=== PATIENT | male | born 1965 | race Caucasian/White ===

== ENCOUNTER 2020-01-25 08:34 | Emergency (ER) | payer OTHER, BC, SELFPAY ==
[2020-01-25 08:46] VITALS: BP 139/82; PULSE 81; RESP 18; TEMP 36.6; O2SAT 98; BMI 30.7
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
== END 2020-01-25 10:45 | disposition home or self-care (01) ==
PROVIDERS: Emergency Provider Internal Medicine; PCP Internal Medicine
DX: S13.4XXA Sprain of ligaments of cervical spine, initial encounter (principal); S83.92XA Sprain of unspecified site of left knee, initial encounter; M54.2 Cervicalgia; V43.52XA Car driver injured in collision with other type car in traffic accident, initial encounter; Y93.9 Activity, unspecified; Y92.410 Unspecified street and highway as the place of occurrence of the external cause; Y99.9 Unspecified external cause status; Z79.899 Other long term (current) drug therapy
CPT/HCPCS: 70450; 72125; 73564; 99283; 99284

== ENCOUNTER 2020-04-23 15:00 | Outpatient (RCR) | payer OTHER, SELFPAY ==
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
--- NOTE | 2020-04-26 15:56 | MHC.PT.DC ---
[facility] [place] Office [place] Office [place] Office [address] Meghann Santos [address] [phone] F: [phone] F: [phone] F: [phone] F: [phone] Physical Therapy Discharge Report Diagnosis: pain in left knee and cervicalgia Date of Surgery: N/A Date of Evaluation: 02/24/20 Date of Discharge: 04/26/20 Treatments to Date: 9 Cancellations to Date: 7 No Shows to Date: 0 Discharge Status: Achieved Goals Improved Function Independent with HEP Discharge Summary: The patient reported he has been having little to no neck or knee pain for several weeks. He is independent with his home exercise program. He was instructed regarding a safe return to gym program. The patient is discharged from this physical therapy plan of care. Electronically signed by: Marbella Ruiz PT, DPT Please sign and return to therapist. Thank you for your referral.
== END 2020-04-26 15:57 | disposition other institution (70) ==
LOC: HO.PT 15:00
PROVIDERS: PCP Internal Medicine; Visit Provider Internal Medicine
DX: M25.562 Pain in left knee (principal)
CPT/HCPCS: 97110; 97140; 97161; 97164; 97530

== ENCOUNTER 2024-02-05 09:20 | Outpatient (AMB) | payer OTHER, SELFPAY ==
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
[2024-02-05 10:18] VITALS: BP 130/90; PULSE 68; O2SAT 95; BMI 32.6
== END 2024-02-05 10:51 | disposition home or self-care (01) ==
PROVIDERS: PCP Internal Medicine; Visit Provider Physician Assistant
DX: R20.2 Paresthesia of skin (principal)